=== PATIENT | female | born 1995 | race Caucasian/White ===

== ENCOUNTER 2019-12-06 18:03 | Emergency (ER) | payer BC ==
[~2019-12-06] VITALS: Ht 162.6 cm; Wt 58.1 kg
[2019-12-06 18:13] VITALS: BP 120/80
--- NOTE | 2019-12-06 18:56 | PHYS DOC ---
Past History Past Medical History: No Pertinent History Past Surgical History: Other (D&C) General Adult EDM: Chief Complaint: VAGINAL BLEEDING HPI: HPI: 24F with FDLMP 09/04/19, p/w vaginal bleeding. +HCG at home on multiple tests over last week or so. Underwent medical in mid October through [facility]. A couple hours prior to arrival, she developed some mild vaginal bleeding. No abdominal or pelvic pain, flank pain, nausea or vomiting. No care. Review of Systems: Review of Systems: Gen: No fever, chills. Eyes: No blurred vision, diplopia. ENT: No nasal congestion, sore throat. CV: No CP, palpitations. Resp. No SOB, cough. GI: No abd pain, N/V. : No dysuria, hematuria. Reports vaginal bleeding. Neuro: No COOPER, dizziness, weakness. MSK: No myalgia, arthralgia. Skin: No acute rash or lesion. Heart Score: Risk Factors: Risk Factors: DM, Current or recent (<one month) smoker, HTN, HLP, family history of CAD, obesity. Risk Scores: Score 0 - 3: 2.5% MACE over next 6 weeks - Discharge Home Score 4 - 6: 20.3% MACE over next 6 weeks - Admit for Clinical Observation Score 7 - 10: 72.7% MACE over next 6 weeks - Early Invasive Strategies Physical Exam: PE: Gen: NAD. Head: NC/AT. Eyes: No scleral icterus. No conjunctival injection. ENT: MMM. Posterior OP clear. Neck: Supple. NT. CV: RRR. Peripheral pulses intact. Resp: CTAB. Abd: Soft. NT. ND. MSK: No peripheral cyanosis. No edema. Neuro: Awake and alert. Skin. Warm. Dry. Psych: Appropriate mood & affect. EKG: EKG: [] Radiology/Procedures: Radiology/Procedures: [] Impressions: IMPRESSION: * There is some prominence of the endometrial stripe with heterogeneity but a definite pole is not seen at this time. Given the patient's positive hCG this could be secondary to an early prior to visualization of a pole but would consider obtaining a follow-up to ensure that this is not secondary to an alternative cause such as early failure or ectopic. * Right ovarian cyst. * Vascular flow is seen to the bilateral ovaries. Electronically signed by: Nikolai Mahajan MD (12/06/2019 8:50 PM) [id number] Course & Med Decision Making: Course & Med Decision Making Pertinent Labs and Imaging studies reviewed. (See chart for details) 24-year-old female who presents for the evaluation of vaginal bleeding and . She underwent a recent medical in mid October, had passage of tissue, and was reportedly confirmed thereafter to have had a complete . She reports vaginal bleeding today with recently positive home tests. Benign abdominal examination. No laterality and pelvic cramping. Her lab work is largely unremarkable. Blood type is a positive, no indication for RhoGam. Quantitative hCG is 47. Her pelvic ultrasound does not reveal a pole. Her presentation today may represent very early IUP, threatened , less likely ectopic. She remains well-appearing and nontoxic. She will discharged home with outpatient RESPIRATORY TECHNICIAN follow-up in 48 hours for repeat quantitative hCG. Return precautions given. Dragon Disclaimer: Dragon Disclaimer: This electronic medical record was generated, in whole or in part, using a voice recognition dictation system. Departure Departure: Impression: Primary Impression: Vaginal bleeding Disposition: HOME/RESIDENCE PRIOR TO ADM Condition: STABLE Referrals: PCP,TIAGO (PCP) [facility] Additional Instructions: Please follow up with OB in 48 hours. Your hCG was only 47 today. Your US did not show a pole. This may potentially represent very early intrauterine p regnancy or possible a threatened . Return to the ED if you develop new or worsening symptoms. Justification of Admission: Justification of Admission: Justification of Admission Dx: N/A TED FRASER DO Dec 06, 2019 18:56
[2019-12-06 19:47] LABS: BASO # 0.1 x10^3/uL (0.0-0.2); BASO % 1 % (0-3); EOS # 0.6 x10^3/uL (0.0-0.7); EOS % 6 % (0-3); HEMATOCRIT 38.6 % (36.0-47.0); HEMOGLOBIN 12.9 g/dL (12.0-15.5); LYMPH # 1.8 x10^3/uL (1.0-4.8); LYMPH % 19 % (24-48); MEAN CORPUSCULAR HEMOGLOBIN 31 pg (25-35); MEAN CORPUSCULAR HGB CONC 33 g/dL (31-37); MEAN CORPUSCULAR VOLUME 94 fL (79-100); MONO # 0.8 x10^3/uL (0.0-1.1); MONO % 8 % (0-9); NEUT # 6.4 x10^3uL (1.8-7.7); NEUT % 66 % (31-73); PLATELET COUNT 311 x10^3/uL (140-400); RED BLOOD COUNT 4.12 x10^6/uL (3.50-5.40); RED CELL DISTRIBUTION WIDTH 13.6 % (11.5-14.5); WHITE BLOOD COUNT 9.7 x10^3/uL (4.0-11.0)
[2019-12-06 19:54] LABS: CALCIUM 8.7 mg/dL (8.5-10.1); CREATININE 0.6 mg/dL (0.6-1.0); GFR 121.8; POTASSIUM 3.4 mmol/L (3.5-5.1)
[2019-12-06 19:59] LABS: ALBUMIN/GLOBULIN RATIO 1.1 (1.0-1.7); TOTAL BILIRUBIN 0.4 mg/dL (0.2-1.0); TOTAL PROTEIN 7.6 g/dL (6.4-8.2)
--- NOTE | 2019-12-06 20:53 | RAD ---
INDICATION: Reason: vaginal bleeding in pregnany / Spl. Instructions: CALLED CHARMAINE @ 4998 / History: COMPARISON: None. TECHNIQUE: Grayscale and color ultrasound images uterus and adnexa. Transvaginal images obtained. FINDINGS: Uterus: 97 x 50 x 43 mm. Endometrial Stripe: 11 mm. Right Ovary: 37 x 34 x 30 mm. Left Ovary: 32 x 24 x 19 mm. Vascular flow identified to bilateral ovaries. 29 x 22 mm right ovarian cyst IMPRESSION: * There is some prominence of the endometrial stripe with heterogeneity but a definite pole is not seen at this time. Given the patient's positive hCG this could be secondary to an early prior to visualization of a pole but would consider obtaining a follow-up to ensure that this is not secondary to an alternative cause such as early failure or ectopic. * Right ovarian cyst. * Vascular flow is seen to the bilateral ovaries. Electronically signed by: Nikolai Mahajan MD (12/06/2019 8:50 PM) [id number]
== END 2019-12-06 21:20 | disposition home or self-care (01) ==
LOC: ER 18:03
DX: N93.9 Abnormal uterine and vaginal bleeding, unspecified (principal); Z98.890 Other specified postprocedural states
CPT/HCPCS: 36415; 76817; 80053; 84702; 85025; 86850; 86900; 86901; 99284

== ENCOUNTER 2019-12-08 11:03 | Emergency (ER) | payer BC ==
[~2019-12-08] VITALS: Ht 162.6 cm; Wt 58.1 kg
[2019-12-08 11:11] VITALS: BP 110/70
--- NOTE | 2019-12-08 11:38 | PHYS DOC ---
Past History Past Medical History: No Pertinent History Past Surgical History: Other Additional Past Surgical Histo: November 09 Alcohol Use: None General Adult EDM: Chief Complaint: VAGINAL BLEEDING HPI: HPI: 24-year-old female who presented here on 12/06/19 for the evaluation of vaginal bleeding and . She underwent a recent medical in mid October, had passage of tissue, and was reportedly confirmed thereafter to have had a complete . She reported vaginal bleeding on 12/06/19 with recently positive home tests. Her lab work was largely unremarkable. Blood type is A positive, no indication for RhoGam. Quantitative hCG was 47. Her pelvic ultrasound did not reveal a pole. Her presentation was deemed as very early IUP, threatened , less likely ectopic. She was discharged home with outpatient SURGICAL INSTRUMENT MECHANIC follow-up in 48 hours for repeat quantitative hCG. She could not find anyone to see her today so she came here to have her blood drawn and checked for HCG level. She denies any abdominal pain, no pelvic pain, no vaginal bleeding, no fever, no cough. Review of Systems: Review of Systems: Constitutional: Denies fever or chills Eyes: Denies change in visual acuity HENT: Denies nasal congestion or sore throat Respiratory: Denies cough or shortness of breath Cardiovascular: Denies chest pain or edema GI: Denies abdominal pain, nausea, vomiting, bloody stools or diarrhea : Denies dysuria Musculoskeletal: Denies back pain or joint pain Integument: Denies rash Neurologic: Denies headache, focal weakness or sensory changes Endocrine: Denies polyuria or polydipsia Lymphatic: Denies swollen glands Psychiatric: Denies depression or anxiety Heart Score: Risk Factors: Risk Factors: DM, Current or recent (<one month) smoker, HTN, HLP, family history of CAD, obesity. Risk Scores: Score 0 - 3: 2.5% MACE over next 6 weeks - Discharge Home Score 4 - 6: 20.3% MACE over next 6 weeks - Admit for Clinical Observation Score 7 - 10: 72.7% MACE over next 6 weeks - Early Invasive Strategies Allergies: Allergies: Allergies Coded Allergies Type Severity Reaction Last Updated Verified No Known Drug Allergies 12/06/19 No Physical Exam: PE: Constitutional: Well developed, well nourished, no acute distress, non-toxic appearance. [] HENT: Normocephalic, atraumatic, bilateral external ears normal, oropharynx moist, no oral exudates, nose normal. [] Eyes: PERRLA, EOMI, conjunctiva normal, no discharge. [] Neck: Normal range of motion, no tenderness, supple, no stridor. [] Cardiovascular:Heart rate regular rhythm, no murmur [] Lungs & Thorax: Bilateral breath sounds clear to auscultation [] Abdomen: Bowel sounds normal, soft, no tenderness, no masses, no pulsatile masses. [] Skin: Warm, dry, no erythema, no rash. [] Back: No tenderness, no CVA tenderness. [] Extremities: No tenderness, no cyanosis, no clubbing, ROM intact, no edema. [] Neurologic: Alert and oriented X 3, normal motor function, normal sensory function, no focal deficits noted. [] Psychologic: Affect normal, judgement normal, mood normal. [] Current Patient Data: Vital Signs: Vital Signs Date Time Temp Pulse Resp B/P (MAP) Pulse Ox O2 Delivery O2 Flow Rate FiO2 12/08/19 11:11 98.7 78 16 110/70 (83) 99 Room Air EKG: EKG: [] Radiology/Procedures: Radiology/Procedures: [] Course & Med Decision Making: Course & Med Decision Making Pertinent Labs and Imaging studies reviewed. (See chart for details) Patient's HCG level trending down from 47 to 16 in 48 hours, indicating miscarriage. No vaginal bleeding or pelvic pain today. She will need to follow up with her doctor to check her HCG level until it became zero. Marialuisa Disclaimer: Marialuisa Disclaimer: This electronic medical record was generated, in whole or in part, using a voice recognition dictation system. Departure Departure: Impression: Primary Impression: Miscarriage Disposition: HOME/RESIDENCE PRIOR TO ADM Condition: STABLE Referrals: PCP,NO (PCP) PLEASE FOLLOW UP WITH YOUR DOCTOR NEXT WEEK TO HAVE YOUR HCG LEVEL RECHECKED TO MAKE SURE IT BECOMES ZERO. YOUR HCG LEVEL IS 16 TODAY Patient Instructions: Miscarriage Additional Instructions: Thank you for visiting our Emergency Department. We appreciate you trusting us with your care. If any additional problems come up don't hesitate to return to visit us. Please follow up with your primary care provider so they can plan additional care if needed and know about the problem that you had. If symptoms worsen come back to the Emergency Department. Any concerning symptoms that start such as chest pain, shortness of air, weakness or numbness on one side of the body, running high fevers or any other concerning symptoms return to the ER. Justification of Admission: Justification of Admission: Justification of Admission Dx: N/A FARIDA HURTADO DO Dec 08, 2019 11:38
== END 2019-12-08 12:39 | disposition home or self-care (01) ==
LOC: ER 11:03
DX: O03.9 Complete or unspecified spontaneous abortion without complication (principal)
CPT/HCPCS: 36415; 84702; 99283